=== PATIENT | female | born 1980 | race Caucasian/White ===

== ENCOUNTER 2020-07-16 10:56 | Emergency (ER) | payer SELFPAY ==
--- NOTE | 2020-07-16 11:15 | ER Document Report ---
ED Medical Screen (RME) - General Chief Complaint: Abscess Stated Complaint: ABSCESS/HAIRLINE, FACIAL SWELLING Time Seen by Provider: 07/16/20 11:07 - HPI Notes: Patient is a 39-year-old female who presents with abscess that began 1 week ago and has worsened over the last 2 days. Patient states the abscess is located in her hairline on the right side which began draining yesterday which is green and yellow in color. Patient states she began to have swelling under her right airway 2 days ago that has worsened today. She denies fever, vomiting and vision changes. She has a history of IV drug use but has not used since 2019. Physical Exam - Vital signs Vitals: Temp Pulse Resp BP Pulse Ox 97.9 F 97 16 132/72 H 98 07/16/20 11:06 07/16/20 11:06 07/16/20 11:06 07/16/20 11:06 07/16/20 11:06 - HEENT Head: Other - Scabbed abscess to the right temporal region just past her hairline with surrouding induration and erythema Eyes: Periorbital edema - right Course - Re-evaluation Re-evalutation: I have greeted and performed a rapid initial assessment of this patient. A comprehensive ED assessment and evaluation of the patient, analysis of test results and completion of medical decision making process will be conducted by an additional ED providers. - Vital Signs Vital signs: Temp Pulse Resp BP Pulse Ox 97.9 F 97 16 132/72 H 98 07/16/20 11:06 07/16/20 11:06 07/16/20 11:06 07/16/20 11:06 07/16/20 11:06
[2020-07-16 11:37] LABS: ABSOLUTE BASOPHILS # (AUTO) 0.1 10^3/uL (0.0-0.2); ABSOLUTE EOSINOPHILS # (AUTO) 0.5 10^3/uL (0.0-0.6); ABSOLUTE LYMPHOCYTES (AUTO) 3.2 10^3/uL (0.5-4.7); ABSOLUTE MONOCYTES (AUTO) 0.9 10^3/uL (0.1-1.4); ABSOLUTE NEUT (AUTO) 6.7 10^3/uL (1.7-8.2); BASOPHILS % (AUTO) 0.5 % (0-2); EOSINOPHILS % (AUTO) 4.2 % (0-6); HEMATOCRIT 41.1 % (36.0-47.0); LYMPHOCYTES % (AUTO) 28.3 % (13-45); MEAN CORPUSCULAR HEMOGLOBIN 30.3 pg (27.0-33.4); MEAN CORPUSCULAR VOLUME 89 fl (80-97); MONOCYTES % (AUTO) 8.1 % (3-13); PLATELET COUNT 281 10^3/uL (150-450); RED BLOOD COUNT 4.62 10^6/uL (3.72-5.28); RED CELL DISTRIBUTION WIDTH 13.6 % (11.5-14.0); SEGMENTED NEUTROPHILS % (AUTO) 58.9 % (42-78); TOTAL CELLS COUNTED % (AUTO) 100 %; WHITE BLOOD COUNT 11.3 10^3/uL (4.0-10.5)
[2020-07-16] MEDS ORDERED: LIDOCAINE 1% INJ-PF (10 MG/ML) 30 ML SDV INJ ONE (11:46)
[2020-07-16] MEDS ORDERED: IBUPROFEN 600 MG TABLET PO ONE (11:54)
[2020-07-16] MEDS ORDERED: ACETAMINOPHEN 325 MG TABLET PO ONE (11:54)
[2020-07-16 11:56] LABS: ANION GAP 5 (5-19); BLOOD UREA NITROGEN 11 mg/dL (7-20); CARBON DIOXIDE 27 mmol/L (22-30); CHLORIDE 105 mmol/L (98-107); GLUCOSE 85 mg/dL (75-110); POTASSIUM 4.7 mmol/L (3.6-5.0)
[2020-07-16] MEDS ORDERED: SULFAMETHOXAZOLE/TRIMETHOPRIM 800-160 MG TABLET PO ONE (13:07)
--- NOTE | 2020-07-16 13:17 | ER Document Report ---
Entered by MIGUEL CANTU SCRIBE 07/16/20 1137 Acting as scribe for:TUNDE BE MD ED Skin Rash/Insect Bite/Abscs - General Chief Complaint: Abscess Stated Complaint: ABSCESS/HAIRLINE, FACIAL SWELLING Time Seen by Provider: 07/16/20 11:07 Mode of Arrival: Ambulatory Information source: Patient Notes: This 39 year old female patient presents to the ED today with complaints of an abscess located on the right [place]eter[place] at the hairline that developed x1 week ago and started draining green/yellow fluid yesterday. Patient reports an another abscess located on the middle of her forehead also at the hairline that she "popped" this morning. She also notes right eyelid swelling that started x2 days ago. Patient has a history of IV drug abuse, last use was on 10/03/2019. She is currently on Suboxone. - Related Data Allergies/Adverse Reactions: No Known Allergies Allergy (Verified 07/16/20 11:17) Past Medical History - General Information source: Patient, [facility] Records - Social History Smoking Status: Current Every Day Smoker Cigarette use (# per day): Yes - 1 ppd Chew tobacco use (# tins/day): No Smoking Education Provided: No Frequency of alcohol use: None Drug Abuse: None Family History: Reviewed & Not Pertinent Past Surgical History: Reports: Hx Orthopedic Surgery - Left ankle ORIF, L4-L5 surgery Review of Systems - Review of Systems Constitutional: No symptoms reported EENT: No symptoms reported Cardiovascular: No symptoms reported Respiratory: No symptoms reported Gastrointestinal: No symptoms reported Genitourinary: No symptoms reported Female Genitourinary: No symptoms reported Musculoskeletal: No symptoms reported Skin: See HPI Hematologic/Lymphatic: No symptoms reported Neurological/Psychological: No symptoms reported -: Yes All other systems reviewed and negative Physical Exam - Vital signs Vitals: Temp Pulse Resp BP Pulse Ox 97.9 F 97 16 132/72 H 98 07/16/20 11:06 07/16/20 11:06 07/16/20 11:06 07/16/20 11:06 07/16/20 11:06 - General General appearance: Alert In distress: None - HEENT Head: Other - There is an abscess that is tender, firm, and swollen noted at the top/middle of the forehead at the hairline. There is an area of skin on the right temporal region that is scabbed over with surrounding fluctuance. Eyes: Other - Right eyelid is swollen Mouth/Lips: Other - There is a scab near her right upper lip just under her nose that is swollen. Patient states that she was was picking at it because she thought it was a mole. - Respiratory Respiratory status: No respiratory distress Chest status: Nontender Breath sounds: Normal Chest palpation: Normal - Cardiovascular Rhythm: Regular Heart sounds: Normal auscultation Murmur: No Friction rub: No Gallop: None auscultated - Abdominal Inspection: Normal Distension: No distension Bowel sounds: Normal Tenderness: Nontender - Abdomen soft Organomegaly: No organomegaly - Back Back: Normal, Nontender - Extremities General upper extremity: Normal inspection General lower extremity: Normal inspection. No: Edema - Neurological Neuro grossly intact: Yes Orientation: AAOx4 Lima Coma Scale Eye Opening: Spontaneous Cesar Coma Scale Verbal: Oriented [place] Coma Scale Motor: Obeys Commands Cesar Coma Scale Total: 15 - Psychological Associated symptoms: Normal affect, Normal mood - Skin Skin Temperature: Warm Skin Moisture: Dry Skin Color: Normal Course - Vital Signs Vital signs: Temp Pulse Resp BP Pulse Ox 97.9 F 97 16 132/72 H 98 07/16/20 11:06 07/16/20 11:06 07/16/20 11:06 07/16/20 11:06 07/16/20 11:06 - Laboratory Result Diagrams: 07/16/20 11:20 07/16/20 11:20 Laboratory results interpreted by me: 07/16/20 07/16/20 11:20 11:20 WBC 11.3 H Sodium 136.7 L Procedures - Incision and Drainage Right Anterior Head Time completed: 13:55 Type: Simple Anesthetic type: 1% Lidocaine mL's of anesthetic: 3 Blade size: 11 I&D procedure: Shurclens applied, Iodoform packing placed Incision Method: Incision made by scalpel Amount/type of drainage: None Notes: 07/16/20 14:00 Incision was made through the scab into the most swollen area. A cavity defect was encountered but there was minimal purulence. A culture was obtained. The cavity was probed with a Q-tip, irrigated with normal saline 20 mL. Cavity was packed with a short piece of quarter-inch iodoform gauze. The hair was not cut or disturbed from this procedure, therefore a bandage was not practical. Discharge - Discharge Clinical Impression: Abscess or cellulitis of scalp Condition: Stable Disposition: HOME, SELF-CARE Additional Instructions: Abscess: You have an abscess (boil). This a pus-forming infection, usually due to staph. Some boils may be left to drain on their own, but most require lancing. From the time the tender lump first appears, it may be three or four days before the abscess is ready to romario. Local heat and rest help at this stage of treatment. An antibiotic may prevent spread of the infection. Once the abscess is opened, packing may be placed into it. This is done so pus is not sealed inside by premature closure of the cavity. The packing will be removed at your follow-up visit or you may be advised to remove it yourself at home. Sometimes this packing must be replaced a few times during healing. The wound will heal with surprisingly little scar. Depending on the size and location of an abscess, healing can take one to four weeks. You may shower and wash the area around the incision site two or three times a day. Antibiotics may be prescribed, but are usually not necessary after an abscess has been drained. If you develop fever, chilling, worsening pain, or increasing swelling in the area, call the doctor or return immediately. Take the medications as prescribed. Take Tylenol and ibuprofen for pain as needed. Try and not to disturb the week and remove it in 2 to 3 days. After the weight comes out, probe the cavity with a Q-tip dipped in peroxide several times every day to try to keep it from growing over and allowing the wound to heal from the inside out. Return to the emergency room for recheck if the redness and swelling does not start to go down after tomorrow. RETURN TO THE EMERGENCY ROOM IF ANY NEW OR WORSENING SYMPTOMS. Prescriptions: Sulfamethoxazole/Trimethoprim [Septra-Ds 800-160 mg Tablet] 2 tab PO BID #28 tablet Forms: Return to Work I personally performed the services described in the documentation, reviewed and edited the documentation which was dictated to the scribe in my presence, and it accurately records my words and actions.
[2020-07-16 14:33] VITALS: BP 132/79
== END 2020-07-16 14:32 | disposition home or self-care (01) ==
LOC: ER 10:56
DX: L02.01 Cutaneous abscess of face (principal); R23.4 Changes in skin texture; F19.10 Other psychoactive substance abuse, uncomplicated; Z79.899 Other long term (current) drug therapy; F17.210 Nicotine dependence, cigarettes, uncomplicated
CPT/HCPCS: 99283; 36415; 87070; 87205; 85025; 87077; 80048; 10060; J3490